=== PATIENT | female | born 1990 | race Caucasian/White ===

== ENCOUNTER 2017-07-20 23:21 | Emergency (ER) | payer MEDICAID ==
[~2017-07-20] VITALS: Ht 165.1 cm; Wt 146.1 kg
[~2017-07-20 23:21] MED LIST: ACET325T14 PO; CEFD300C37 PO
[2017-07-20 23:22] VITALS: BP 158/97
[2017-07-20] MEDS ORDERED: KETOROLAC 30 MG/1 ML ONE (23:46)
[2017-07-20] MEDS ORDERED: PROCHLORPERAZINE 5 MG/ML, 2ML ONE (23:46)
[2017-07-20] MEDS ORDERED: DIPHENHYDRAMINE 50 MG/ML, 1ML ONE (23:46)
[2017-07-21] MEDS ORDERED: PROCHLORPERAZINE 5 MG/ML, 2ML IM ONE
[2017-07-21] MEDS ORDERED: DIPHENHYDRAMINE 50 MG/ML, 1ML IM ONE
[2017-07-21] MEDS ORDERED: KETOROLAC 30 MG/1 ML IM ONE
== END 2017-07-21 00:39 | disposition home or self-care (01) ==
LOC: ED 23:35
DX: L03.213 Periorbital cellulitis (principal); G43.909 Migraine, unspecified, not intractable, without status migrainosus; F32.9 Major depressive disorder, single episode, unspecified; G43.009 Migraine without aura, not intractable, without status migrainosus
CPT/HCPCS: 96372; 99284; J0780; J1200; J1885

== ENCOUNTER 2017-10-31 18:34 | Observation (INO) | payer MEDICAID ==
[~2017-10-31] VITALS: Ht 165.1 cm; Wt 145.4 kg
[2017-10-31 19:17] LABS: HCG UR SG 1.027 (1.003-1.030)
[2017-10-31 19:21] LABS: BASOPHILS # (AUTO) 0.02 x10^3/uL (0-0.1); BASOPHILS % (AUTO) 0 % (0-1); EOSINOPHILS # (AUTO) 0.04 x10^3/uL (0-0.4); EOSINOPHILS % (AUTO) 0 % (1-7); LYMPHOCYTES # (AUTO) 1.35 x10^3/uL (1-3.4); LYMPHOCYTES % (AUTO) 14 % (22-44); MD NO; MEAN CORPUSCULAR HGB CONC 33.3 g/dL (32.4-35.8); MEAN CORPUSCULAR VOLUME 87.2 fL (80-100); MEAN PLATELET VOLUME 8.2 fL (7.4-10.4); MONOCYTES % (AUTO) 6 % (2-9); NEUTROPHILS # (AUTO) 7.52 x10^3/uL (1.8-6.8); NEUTROPHILS % (AUTO) 79 % (42-75); PLATELET COUNT 327 x10^3/uL (130-400); RED BLOOD COUNT 4.69 x10^6/uL (3.82-5.3); RED CELL DISTRIBUTION WIDTH 15.2 % (9.6-15.2)
[2017-10-31 19:28] LABS: AMPHETAMINE SCREEN, URINE Negative (Negative); BARBITURATE SCREEN, URINE Negative (Negative); BENZODIAZEPINE SCREEN, URINE Negative (Negative); CANNABINOID SCREEN, URINE Positive (Negative); COCAINE SCREEN, URINE Negative (Negative); METHADONE SCREEN, URINE Negative (Negative); OPIATE SCREEN, URINE Negative (Negative)
[2017-10-31 19:30] LABS: ALBUMIN 3.6 g/dL (3.4-5.0); ANION GAP 7 mmol/L (5-15); CALCIUM 8.7 mg/dL (8.5-10.1); CHLORIDE 109 mmol/L (98-107)
[2017-10-31 19:33] LABS: SALICYLATE LEVEL < 1.7 mg/dL (2.8-20.0)
[2017-10-31 19:34] LABS: ACETAMINOPHEN < 2 mcg/mL (10-30); ALANINE AMINOTRANSFERASE 24 U/L (12-78); ALKALINE PHOSPHATASE 73 U/L (45-117); BILIRUBIN,TOTAL 0.6 mg/dL (0.2-1.0); CREATININE 0.94 mg/dL (0.55-1.02); TOTAL PROTEIN 7.8 g/dL (6.4-8.2)
[2017-10-31] MEDS ORDERED: HYDR50CA PO (20:34)
[2017-10-31] MEDS ORDERED: TOPI100T24 PO (20:34)
[2017-10-31] MEDS ORDERED: SUMA25TA3 PO (20:34)
[2017-10-31] MEDS: LORazepam 1MG TABLET PO PRN (23:15)
[2017-10-31] MEDS ORDERED: LORazepam 1MG TABLET ONE (23:15)
[2017-11-01] MEDS ORDERED: ONDANSETRON ODT 4 MG PO PRN (21:00)
[2017-11-01] MEDS ORDERED: ACETAMINOPHEN 325 MG TABLET PO PRN (21:00)
[2017-11-01] MEDS ORDERED: LORazepam 1MG TABLET ONE (23:52)
[2017-11-01] MEDS: LORazepam 1MG TABLET PO PRN (23:58)
[2017-11-02 17:14] VITALS: BP 158/88
[2017-11-02 17:40] VITALS: BP 158/88
[2017-11-02 19:47] VITALS: BP 116/80
[2017-11-02] MEDS: LORazepam 1MG TABLET PO PRN (21:30)
[2017-11-03 08:00] VITALS: BP 108/62
[2017-11-03] MEDS: SUMATRIPTAN 25 MG TABLET PO PRN (15:50)
[2017-11-03] MEDS: LORazepam 1MG TABLET PO PRN ×2 (15:51→21:21)
[2017-11-03 20:20] VITALS: BP 136/79
[2017-11-04 07:15] VITALS: BP 121/82
[2017-11-04] MEDS: LORazepam 1MG TABLET PO PRN ×2 (10:04→18:06)
[2017-11-04 19:54] VITALS: BP 136/76
[2017-11-04] MEDS: SUMATRIPTAN 25 MG TABLET PO PRN (21:11)
[2017-11-05 07:45] VITALS: BP 112/76
== END 2017-11-05 16:00 | disposition home or self-care (01) ==
LOC: ED 18:57 → EDIP 11-01 19:47 → 2N 11-02 16:53
PROVIDERS: ADMIT Hospitalist; ATTEND Hospitalist
DX: R45.851 Suicidal ideations (principal); F41.1 Generalized anxiety disorder; R73.9 Hyperglycemia, unspecified; F60.9 Personality disorder, unspecified; F43.10 Post-traumatic stress disorder, unspecified; F32.9 Major depressive disorder, single episode, unspecified; F12.90 Cannabis use, unspecified, uncomplicated; G43.909 Migraine, unspecified, not intractable, without status migrainosus; Z91.5 Personal history of self-harm
CPT/HCPCS: 36415; 80053; 80307; 80329; 81025; 85025; 99285; G0378; G0480

== ENCOUNTER 2019-04-20 12:45 | Inpatient (IN) | payer MEDICAID ==
[~2019-04-20] VITALS: Ht 157.5 cm; Wt 154.5 kg
[~2019-04-20 12:45] MED LIST changes: +HYDR50CA PO; +SUMA25TA3 PO; +TOPI100T24 PO
[2019-04-20 13:18] VITALS: BP 148/78
[2019-04-20 13:35] VITALS: BP 144/84
[2019-04-20 13:45] LABS: BASOPHILS # (AUTO) 0.02 x10^3/uL (0-0.1); BASOPHILS % (AUTO) 0 % (0-1); EOSINOPHILS # (AUTO) 0.04 x10^3/uL (0-0.4); EOSINOPHILS % (AUTO) 1 % (1-7); LYMPHOCYTES # (AUTO) 1.38 x10^3/uL (1-3.4); LYMPHOCYTES % (AUTO) 14 % (22-44); MD NO; MEAN CORPUSCULAR HEMOGLOBIN 31.7 pg (27.0-34.8); MEAN CORPUSCULAR HGB CONC 34.1 g/dL (32.4-35.8); MEAN CORPUSCULAR VOLUME 93.1 fL (80-100); MEAN PLATELET VOLUME 8.1 fL (7.4-10.4); MONOCYTES # (AUTO) 0.43 x10^3/uL (0.2-0.8); MONOCYTES % (AUTO) 4 % (2-9); NEUTROPHILS # (AUTO) 7.86 x10^3/uL (1.8-6.8); NEUTROPHILS % (AUTO) 81 % (42-75); PLATELET COUNT 256 x10^3/uL (130-400); RED BLOOD COUNT 3.86 x10^6/uL (3.82-5.3); RED CELL DISTRIBUTION WIDTH 13.7 % (9.6-15.2)
[2019-04-20 13:48] LABS: ALBUMIN 2.5 g/dL (3.4-5.0); ANION GAP 10 mmol/L (5-15); CALCIUM 8.3 mg/dL (8.5-10.1); CHLORIDE 107 mmol/L (98-107)
[2019-04-20 13:52] LABS: ALANINE AMINOTRANSFERASE 10 U/L (12-78); ALKALINE PHOSPHATASE 87 U/L (45-117); BILIRUBIN,TOTAL 0.4 mg/dL (0.2-1.0); CREATININE 0.61 mg/dL (0.55-1.02); TOTAL PROTEIN 6.4 g/dL (6.4-8.2)
[2019-04-20 13:57] LABS: BILIRUBIN, DIRECT < 0.1 mg/dL (0.1-0.2)
[2019-04-20 14:10] LABS: MICROSCOPIC INDICATED
[2019-04-20] MEDS ORDERED: D5%-LACTATED RINGERS 1,000 ML IV SCH (15:06)
[2019-04-20] MEDS ORDERED: OXYTOCIN 30U/ 0.9% NaCL 500ML 500 ML IV ONE (15:06)
[2019-04-20] MEDS ORDERED: OXYTOCIN 30U/ 0.9% NaCL 500ML 500 ML IV PRN (15:06)
[2019-04-20] MEDS ORDERED: FENTANYL PF 100 MCG/2ML IVPush PRN (15:30)
[2019-04-20] MEDS ORDERED: TERBUTALINE 1 MG/ML, 1ML IVPush PRN (15:30)
[2019-04-20] MEDS ORDERED: TERBUTALINE 1 MG/ML, 1ML SQ PRN (15:30)
[2019-04-20] MEDS ORDERED: MISOPROSTOL 25 MCG TABLET ONE ×2 (16:40→20:48)
[2019-04-20] MEDS: MISOPROSTOL 25 MCG TABLET VG PRN ×2 (16:53→21:00)
[2019-04-20] MEDS ORDERED: LABETALOL 5MG/ML, 20ML ONE (16:59)
[2019-04-20] MEDS ORDERED: LABETALOL 5MG/ML, 20ML IVPush PRN ×3 (17:00)
[2019-04-20] MEDS ORDERED: hydrALAzine 20 MG/ML, 1ML IVPush ONE (17:00)
[2019-04-20] MEDS ORDERED: NEWBORN KIT ONE (17:39)
[2019-04-20] MEDS ORDERED: SODIUM CHLORIDE FLUSH 3ML SYRINGE IVF SCH (21:00)
[2019-04-21 08:32] LABS: AMPHETAMINE SCREEN, URINE Negative (Negative); BARBITURATE SCREEN, URINE Negative (Negative); BENZODIAZEPINE SCREEN, URINE Negative (Negative); CANNABINOID SCREEN, URINE Negative (Negative); COCAINE SCREEN, URINE Negative (Negative); METHADONE SCREEN, URINE Negative (Negative); OPIATE SCREEN, URINE Negative (Negative)
[2019-04-21] MEDS ORDERED: OXYTOCIN 30U/ 0.9% NaCL 500ML 500 ML ONE (08:49)
[2019-04-21] MEDS: LACTATED RINGERS 1,000 ML IV SCH ×3 (08:53→19:00)
[2019-04-21] MEDS ORDERED: PENICILLIN GK 5,000,000 UNITS in DEXTROSE 5% 100 ML IVPB ONE (09:30)
[2019-04-21] MEDS ORDERED: ONDANSETRON 2MG/ML, 2ML ONE ×2 (09:30→20:55)
[2019-04-21] MEDS ORDERED: FENTANYL PF 100 MCG/2ML ONE (09:31)
[2019-04-21] MEDS: ONDANSETRON 2MG/ML, 2ML IVPush PRN ×2 (09:34→20:58)
[2019-04-21] MEDS ORDERED: LABETALOL 5MG/ML, 20ML IVPush STA (10:20)
[2019-04-21] MEDS ORDERED: CALCIUM GLUCONATE 4.6 MEQ/10 ML IV PRN (10:30)
[2019-04-21] MEDS ORDERED: MAGNESIUM SULFATE PMX 4GM/100M 100 ML IVPB ONE (10:30)
[2019-04-21] MEDS ORDERED: CALCIUM GLUCONATE 4.6 MEQ in SODIUM CHLORIDE 0.9% 100 ML IV ONE (11:00)
[2019-04-21] MEDS: MAGNESIUM SULF. PMX 20GM/500ML 500 ML IV SCH ×2 (11:21→19:36)
[2019-04-21] MEDS ORDERED: hydrALAzine 20 MG/ML, 1ML IVPush ONE (11:30)
[2019-04-21] MEDS ORDERED: LABETALOL 5MG/ML, 20ML IVPush PRN ×2 (11:30)
[2019-04-21] MEDS: PENICILLIN GK 2,500,000 UNITS in DEXTROSE 5% 100 ML IVPB SCH ×3 (13:39→21:46)
[2019-04-21] MEDS ORDERED: ACETAMINOPHEN 325 MG TABLET ONE ×2 (18:27→23:18)
[2019-04-21] MEDS ORDERED: ACETAMINOPHEN 325 MG TABLET PO PRN (18:30)
[2019-04-22] MEDS ORDERED: METOCLOPRAMIDE 5 MG/ML, 2ML ONE ×2 (01:39→17:40)
[2019-04-22] MEDS ORDERED: DIPHENHYDRAMINE 50 MG/ML, 1ML ONE (01:39)
[2019-04-22] MEDS ORDERED: DIPHENHYDRAMINE 50 MG/ML, 1ML IVPush ONE (02:00)
[2019-04-22] MEDS: PENICILLIN GK 2,500,000 UNITS in DEXTROSE 5% 100 ML IVPB SCH ×4 (02:00→14:01)
[2019-04-22] MEDS ORDERED: METOCLOPRAMIDE 5 MG/ML, 2ML IVPush ONE (02:00)
[2019-04-22] MEDS: MAGNESIUM SULF. PMX 20GM/500ML 500 ML IV SCH ×2 (06:05→16:04)
[2019-04-22] MEDS: LACTATED RINGERS 1,000 ML IV SCH ×3 (07:22→18:35)
[2019-04-22] MEDS ORDERED: FENTANYL/BUPIV./NS/PF 250 ML EPIDCONT SCH (08:15)
[2019-04-22] MEDS ORDERED: FENTANYL PF 500 MCG, BUPIVACAINE/PF 0.5%, 30ML 62.5 ML in SODIUM CHLORIDE 0.9% 177.5 ML EPIDCONT SCH (08:30)
[2019-04-22] MEDS ORDERED: LACTATED RINGERS 1,000 ML IVBOLUS PRN (08:30)
[2019-04-22] MEDS ORDERED: OXYTOCIN 30U/ 0.9% NaCL 500ML 500 ML ONE (15:57)
[2019-04-22] MEDS ORDERED: SODIUM CITRATE/CITRIC ACID 30 ML UDC ONE (17:40)
[2019-04-22] MEDS ORDERED: LACTATED RINGERS 1,000 ML IV SCH ×2 (17:43)
[2019-04-22] MEDS ORDERED: FENTANYL PF 100 MCG/2ML IV PRN (18:00)
[2019-04-22] MEDS ORDERED: ACETAMINOPHEN 325 MG TABLET PO PRN ×2 (18:00)
[2019-04-22] MEDS ORDERED: CALCIUM CARBONATE 500 MG TAB.CHEW PO PRN (18:00)
[2019-04-22] MEDS ORDERED: MISOPROSTOL 200 MCG TABLET PR PRN (18:00)
[2019-04-22] MEDS ORDERED: MEPERIDINE/PF 25MG/ML,1ML IVPush PRN (18:00)
[2019-04-22] MEDS ORDERED: SODIUM CITRATE/CITRIC ACID 30 ML UDC PO ONE (18:00)
[2019-04-22] MEDS ORDERED: LACTATED RINGERS 1,000 ML IVBOLUS ONE (18:00)
[2019-04-22] MEDS ORDERED: MORPHINE SULFATE 4 MG/ML, 1ML IVPush PRN ×2 (18:00)
[2019-04-22] MEDS ORDERED: AZITHROMYCIN 500 MG in SODIUM CHLORIDE 0.9% 250 ML IV ONE (18:00)
[2019-04-22] MEDS ORDERED: EPHEDRINE 50 MG/ML, 1ML IVPush PRN (18:00)
[2019-04-22] MEDS ORDERED: SIMETHICONE 80 MG CHEW TAB PO PRN (18:00)
[2019-04-22] MEDS ORDERED: METOCLOPRAMIDE 5 MG/ML, 2ML IV ONE (18:00)
[2019-04-22] MEDS ORDERED: DIPH,PERTUSS(ACELL),TET VAC/PF NC IM-VACC PRN (18:00)
[2019-04-22] MEDS ORDERED: OXYcodone 5 MG/5 ML ORAL.SOL UDC PO PRN (18:00)
[2019-04-22] MEDS ORDERED: MEASLES,MUMPS&RUBELLA VACC/PF 0.5 ML SQ-VACC PRN (18:00)
[2019-04-22] MEDS ORDERED: ONDANSETRON 2MG/ML, 2ML IV PRN ×2 (18:00)
[2019-04-22] MEDS ORDERED: FENTANYL PF 100 MCG/2ML ONE (18:33)
[2019-04-22] MEDS ORDERED: OXYTOCIN 10 UNITS/ML, 1ML ONE ×2 (18:38→19:14)
[2019-04-22] MEDS ORDERED: CEFAZOLIN 1,000 MG ONE ×2 (18:38→19:13)
[2019-04-22] MEDS ORDERED: EPHEDRINE 50 MG/ML, 1ML ONE (19:13)
[2019-04-22] MEDS ORDERED: EPINEPHRINE 1 MG/ML, 1ML ONE (19:13)
[2019-04-22] MEDS: KETOROLAC 30 MG/1 ML IV SCH (19:30)
[2019-04-23] MEDS ORDERED: KETOROLAC 30 MG/1 ML ONE ×4 (01:23→19:26)
[2019-04-23] MEDS: KETOROLAC 30 MG/1 ML IV SCH ×4 (01:25→19:30)
[2019-04-23] MEDS ORDERED: OXYcodone/APAP 5/325MG TABLET ONE ×3 (01:41→17:22)
[2019-04-23] MEDS: OXYcodone/APAP 5/325MG TABLET PO PRN ×5 (01:45→22:25)
[2019-04-23 03:21] LABS: BASOPHILS # (AUTO) 0.02 x10^3/uL (0-0.1); BASOPHILS % (AUTO) 0 % (0-1); EOSINOPHILS # (AUTO) 0.07 x10^3/uL (0-0.4); EOSINOPHILS % (AUTO) 1 % (1-7); LYMPHOCYTES # (AUTO) 1.91 x10^3/uL (1-3.4); LYMPHOCYTES % (AUTO) 16 % (22-44); MD NO; MEAN CORPUSCULAR HEMOGLOBIN 31.5 pg (27.0-34.8); MEAN CORPUSCULAR VOLUME 92.8 fL (80-100); MEAN PLATELET VOLUME 7.7 fL (7.4-10.4); MONOCYTES # (AUTO) 0.66 x10^3/uL (0.2-0.8); MONOCYTES % (AUTO) 6 % (2-9); NEUTROPHILS # (AUTO) 9.24 x10^3/uL (1.8-6.8); NEUTROPHILS % (AUTO) 78 % (42-75); PLATELET COUNT 260 x10^3/uL (130-400); RED BLOOD COUNT 3.56 x10^6/uL (3.82-5.3); RED CELL DISTRIBUTION WIDTH 14.3 % (9.6-15.2)
[2019-04-23] MEDS: OXYTOCIN 30U/ 0.9% NaCL 500ML 500 ML IV SCH ×4 (03:43→23:43)
[2019-04-23] MEDS: MAGNESIUM SULF. PMX 20GM/500ML 500 ML IV SCH ×2 (04:14→15:26)
[2019-04-23 07:34] VITALS: BP 139/77
[2019-04-23] MEDS ORDERED: DOCUSATE 100 MG CAPSULE ONE (11:27)
[2019-04-23] MEDS ORDERED: PRENATAL VIT/IRON/FA 1 EACH TABLET ONE (11:27)
[2019-04-23] MEDS: DOCUSATE 100 MG CAPSULE PO PRN ×2 (11:29→22:25)
[2019-04-23] MEDS: PRENATAL VIT/IRON/FA 1 EACH TABLET PO SCH (11:30)
[2019-04-23 11:40] VITALS: BP 135/71
[2019-04-23] MEDS ORDERED: OXYTOCIN 30U/ 0.9% NaCL 500ML 500 ML ONE (14:24)
[2019-04-23 18:11] VITALS: BP 143/73
[2019-04-23 20:20] VITALS: BP 132/72
[2019-04-24] VITALS (7 sets, daily range): BP systolic 116–141; BP diastolic 64–96
[2019-04-24] MEDS: KETOROLAC 30 MG/1 ML IV SCH ×3 (01:30→13:28)
[2019-04-24] MEDS: OXYcodone/APAP 5/325MG TABLET PO PRN ×2 (03:51→14:00)
[2019-04-24] MEDS: PRENATAL VIT/IRON/FA 1 EACH TABLET PO SCH (10:56)
[2019-04-24] MEDS: DOCUSATE 100 MG CAPSULE PO PRN (10:56)
[2019-04-24] MEDS: OXYTOCIN 30U/ 0.9% NaCL 500ML 500 ML IV SCH ×2 (12:32→19:43)
[2019-04-24] MEDS ORDERED: IBUPROFEN 600 MG TABLET ONE (13:58)
[2019-04-24] MEDS: IBUPROFEN 600 MG TABLET PO PRN ×2 (14:01→22:56)
[2019-04-24] MEDS ORDERED: IBUPROFEN 600 MG TABLET PO PRN (18:00)
[2019-04-25 00:40] VITALS: BP 135/86
[2019-04-25 04:45] VITALS: BP 141/90
[2019-04-25] MEDS: OXYTOCIN 30U/ 0.9% NaCL 500ML 500 ML IV SCH ×2 (05:43→15:43)
[2019-04-25 07:00] VITALS: BP 110/72
[2019-04-25] MEDS: DOCUSATE 100 MG CAPSULE PO PRN ×2 (07:39→20:51)
[2019-04-25] MEDS: IBUPROFEN 600 MG TABLET PO PRN ×2 (07:39→20:51)
[2019-04-25] MEDS: PRENATAL VIT/IRON/FA 1 EACH TABLET PO SCH (07:39)
[2019-04-25 12:06] VITALS: BP 157/106
[2019-04-25] MEDS ORDERED: LABETALOL 100 MG TABLET ONE (12:26)
[2019-04-25] MEDS: LABETALOL 100 MG TABLET PO SCH (12:28)
[2019-04-25] MEDS: OXYcodone/APAP 5/325MG TABLET PO PRN ×2 (12:31→20:53)
[2019-04-25 16:15] VITALS: BP 127/81
[2019-04-25 21:00] VITALS: BP 132/82
[2019-04-26] VITALS (8 sets, daily range): BP systolic 137–174; BP diastolic 79–122
[2019-04-26] MEDS: OXYTOCIN 30U/ 0.9% NaCL 500ML 500 ML IV SCH (01:43)
[2019-04-26] MEDS: IBUPROFEN 600 MG TABLET PO PRN ×3 (03:08→22:04)
[2019-04-26] MEDS: PRENATAL VIT/IRON/FA 1 EACH TABLET PO SCH (08:55)
[2019-04-26] MEDS: LABETALOL 100 MG TABLET PO SCH (08:55)
[2019-04-26] MEDS: DOCUSATE 100 MG CAPSULE PO PRN (08:55)
[2019-04-26] MEDS ORDERED: LABETALOL 100 MG TABLET PO SCH (09:00)
[2019-04-26] MEDS ORDERED: IBUP-1222 PO (11:13)
[2019-04-26] MEDS ORDERED: OXYC-302 PO (11:13)
[2019-04-26] MEDS ORDERED: LABE100T6 PO (11:14)
[2019-04-26 17:18] LABS: BASOPHILS # (AUTO) 0.04 x10^3/uL (0-0.1); BASOPHILS % (AUTO) 0 % (0-1); EOSINOPHILS # (AUTO) 0.25 x10^3/uL (0-0.4); EOSINOPHILS % (AUTO) 3 % (1-7); LYMPHOCYTES # (AUTO) 1.92 x10^3/uL (1-3.4); LYMPHOCYTES % (AUTO) 20 % (22-44); MD NO; MEAN CORPUSCULAR HEMOGLOBIN 31.5 pg (27.0-34.8); MEAN CORPUSCULAR HGB CONC 33.5 g/dL (32.4-35.8); MEAN CORPUSCULAR VOLUME 94.2 fL (80-100); MEAN PLATELET VOLUME 7.7 fL (7.4-10.4); MONOCYTES # (AUTO) 0.48 x10^3/uL (0.2-0.8); MONOCYTES % (AUTO) 5 % (2-9); NEUTROPHILS % (AUTO) 72 % (42-75); PLATELET COUNT 304 x10^3/uL (130-400); RED BLOOD COUNT 3.76 x10^6/uL (3.82-5.3); RED CELL DISTRIBUTION WIDTH 14.4 % (9.6-15.2)
[2019-04-26 17:53] LABS: ALANINE AMINOTRANSFERASE 19 U/L (12-78); ALBUMIN 2.5 g/dL (3.4-5.0); ANION GAP 8 mmol/L (5-15); CALCIUM 9.1 mg/dL (8.5-10.1); CHLORIDE 110 mmol/L (98-107); CREATININE 0.56 mg/dL (0.55-1.02)
[2019-04-26 17:56] LABS: ALKALINE PHOSPHATASE 78 U/L (45-117); BILIRUBIN,TOTAL 0.3 mg/dL (0.2-1.0); TOTAL PROTEIN 6.5 g/dL (6.4-8.2)
[2019-04-26] MEDS ORDERED: MAGNESIUM SULFATE PMX 4GM/100M 100 ML IVPB ONE (19:00)
[2019-04-26] MEDS ORDERED: MAGNESIUM SULFATE PMX 4GM/100M 100 ML ONE (19:10)
[2019-04-26] MEDS: LACTATED RINGERS 1,000 ML IV PRN (19:26)
[2019-04-26] MEDS: MAGNESIUM SULF. PMX 20GM/500ML 500 ML IV SCH (19:28)
[2019-04-26] MEDS ORDERED: LABETALOL 200 MG TABLET ONE (20:25)
[2019-04-26] MEDS: LABETALOL 200 MG TABLET PO SCH (20:26)
[2019-04-26] MEDS ORDERED: LABETALOL 200 MG TABLET PO SCH (21:00)
[2019-04-26] MEDS ORDERED: LABETALOL 5MG/ML, 20ML ONE (21:06)
[2019-04-26] MEDS ORDERED: LABETALOL 5MG/ML, 20ML IVPush PRN ×3 (21:30)
[2019-04-26] MEDS ORDERED: hydrALAzine 20 MG/ML, 1ML IVPush ONE (21:30)
[2019-04-26] MEDS ORDERED: IBUPROFEN 600 MG TABLET ONE (22:03)
[2019-04-27] MEDS: MAGNESIUM SULF. PMX 20GM/500ML 500 ML IV SCH ×2 (04:54→14:12)
[2019-04-27] MEDS: LACTATED RINGERS 1,000 ML IV PRN (07:11)
[2019-04-27 07:13] LABS: BASOPHILS # (AUTO) 0.01 x10^3/uL (0-0.1); BASOPHILS % (AUTO) 0 % (0-1); EOSINOPHILS # (AUTO) 0.23 x10^3/uL (0-0.4); EOSINOPHILS % (AUTO) 3 % (1-7); LYMPHOCYTES # (AUTO) 1.71 x10^3/uL (1-3.4); LYMPHOCYTES % (AUTO) 21 % (22-44); MD NO; MEAN CORPUSCULAR HEMOGLOBIN 31.1 pg (27.0-34.8); MEAN CORPUSCULAR HGB CONC 33.2 g/dL (32.4-35.8); MEAN CORPUSCULAR VOLUME 93.6 fL (80-100); MEAN PLATELET VOLUME 6.9 fL (7.4-10.4); MONOCYTES # (AUTO) 0.41 x10^3/uL (0.2-0.8); MONOCYTES % (AUTO) 5 % (2-9); NEUTROPHILS # (AUTO) 5.92 x10^3/uL (1.8-6.8); NEUTROPHILS % (AUTO) 71 % (42-75); PLATELET COUNT 340 x10^3/uL (130-400); RED BLOOD COUNT 3.83 x10^6/uL (3.82-5.3); RED CELL DISTRIBUTION WIDTH 13.8 % (9.6-15.2)
[2019-04-27 07:25] LABS: ALANINE AMINOTRANSFERASE 21 U/L (12-78); ALBUMIN 2.4 g/dL (3.4-5.0); ANION GAP 7 mmol/L (5-15); CALCIUM 7.9 mg/dL (8.5-10.1); CHLORIDE 110 mmol/L (98-107); CREATININE 0.57 mg/dL (0.55-1.02)
[2019-04-27 07:27] LABS: ALKALINE PHOSPHATASE 83 U/L (45-117); BILIRUBIN,TOTAL 0.3 mg/dL (0.2-1.0); TOTAL PROTEIN 6.6 g/dL (6.4-8.2)
[2019-04-27] MEDS ORDERED: PRENATAL VIT/IRON/FA 1 EACH TABLET ONE (08:47)
[2019-04-27] MEDS ORDERED: LABETALOL 200 MG TABLET ONE ×2 (08:48→20:54)
[2019-04-27] MEDS ORDERED: DOCUSATE 100 MG CAPSULE ONE (08:48)
[2019-04-27] MEDS: LABETALOL 200 MG TABLET PO SCH ×2 (08:51→20:55)
[2019-04-27] MEDS: DOCUSATE 100 MG CAPSULE PO PRN (08:51)
[2019-04-27] MEDS: PRENATAL VIT/IRON/FA 1 EACH TABLET PO SCH (08:51)
[2019-04-27] MEDS ORDERED: ACETAMINOPHEN 325 MG TABLET PO PRN (09:00)
[2019-04-28 07:43] VITALS: BP 129/75
[2019-04-28] MEDS: DOCUSATE 100 MG CAPSULE PO PRN (08:57)
[2019-04-28] MEDS: PRENATAL VIT/IRON/FA 1 EACH TABLET PO SCH (08:57)
[2019-04-28] MEDS: LABETALOL 200 MG TABLET PO SCH (08:57)
[2019-04-28 12:10] VITALS: BP 122/68
== END 2019-04-28 14:30 | disposition home or self-care (01) | DRG 540 ==
LOC: LDOP 12:45 → LDIP 15:11 → 2NE 04-22 21:38 → 2NW 04-23 19:35 → 2NE 04-26 18:57 → 2NW 04-28 06:45
PROVIDERS: ADMIT Student in an Organized Health Care Education/Training Program; ATTEND Student in an Organized Health Care Education/Training Program
PROC: 10D00Z1 Extraction of Products of Conception, Low, Open Approach (ICD-10-PCS; principal; 2019-04-22)
DX: O14.14 Severe pre-eclampsia complicating childbirth (principal); E66.01 Morbid (severe) obesity due to excess calories; F33.1 Major depressive disorder, recurrent, moderate; G89.18 Other acute postprocedural pain; J44.9 Chronic obstructive pulmonary disease, unspecified; O99.214 Obesity complicating childbirth; O99.344 Other mental disorders complicating childbirth; Z88.8 Allergy status to other drugs, medicaments and biological substances; Z91.040 Latex allergy status; Z37.0 Single live birth; Z3A.37 37 weeks gestation of pregnancy; Z80.3 Family history of malignant neoplasm of breast; Z80.41 Family history of malignant neoplasm of ovary; Z81.8 Family history of other mental and behavioral disorders; O99.824 Streptococcus B carrier state complicating childbirth; Z82.3 Family history of stroke; Z82.49 Family history of ischemic heart disease and other diseases of the circulatory system; Z83.3 Family history of diabetes mellitus; Z85.72 Personal history of non-Hodgkin lymphomas; O61.9 Failed induction of labor, unspecified; O62.0 Primary inadequate contractions; O99.52 Diseases of the respiratory system complicating childbirth; J45.909 Unspecified asthma, uncomplicated; F43.23 Adjustment disorder with mixed anxiety and depressed mood
CPT/HCPCS: 36415; 80053; 80307; 81001; 82248; 82570; 82803; 83735; 84156; 84550; 85025; 86592; 86850; 86900; G0378; J0171; J0456; J0610; J0690; J1885; J2405; J2540; J3010; J1200; J2590; J2765; J3475; J7050; J7120; J7121